=== PATIENT | female | born 1975 | race Caucasian/White ===

== ENCOUNTER 2019-09-20 11:47 | Inpatient (IN) ==
[~2019-09-20 11:47] MED LIST: ceFAZolin SODIUM 1 GM VIAL IV PRN; ceFAZolin SODIUM/DEXTROSE,ISO 2 GM/50 ML BAG IV PRN
[2019-09-20] MEDS ORDERED: GLYCOPYRROLATE 0.2 MG/ML VIAL ONE (12:02)
[2019-09-20] MEDS ORDERED: SUCCINYLCHOLINE IN 0.9%NACL/PF 200 MG/10 ML SYRINGE IV ONE (12:02)
[2019-09-20] MEDS ORDERED: ONDANSETRON HCL/PF 2 MG/ML VIAL ONE ×2 (12:02→12:28)
[2019-09-20] MEDS ORDERED: DEXAMETHASONE SODIUM PHOSPHATE 10 MG/ML VIAL ONE (12:02)
[2019-09-20] MEDS ORDERED: KETOROLAC TROMETHAMINE 30 MG/ML VIAL ONE (12:02)
[2019-09-20] MEDS ORDERED: NEOSTIGMINE METHYLSULFATE 1 MG/ML VIAL ONE (12:02)
[2019-09-20] MEDS ORDERED: SEVOFLURANE 250 ML BTL IH ONE (12:03)
[2019-09-20] MEDS ORDERED: ROCURONIUM BROMIDE 10 MG/ML VIAL ONE ×2 (12:03→15:55)
[2019-09-20] MEDS ORDERED: fentaNYL CITRATE/PF 50 MCG/ML AMPUL ONE ×2 (12:04→14:06)
[2019-09-20] MEDS ORDERED: ceFAZolin SODIUM 1 GM VIAL ONE (12:18)
[2019-09-20] MEDS ORDERED: LIDOCAINE HCL/EPINEPHRINE 30 ML VIAL IJ ONE ×2 (12:18→15:14)
--- NOTE | 2019-09-20 12:24 | ANES ---
Anesthesia Pre Procedure Eval Vitals/Labs: Last Vital Signs Temp 37.8 C 09/20/19 12:08 Pulse 91 09/20/19 12:08 Resp 18 09/20/19 12:08 BP 127/84 09/20/19 12:08 Pulse Ox 98 09/20/19 12:08 HOME MEDICATIONS duloxetine 60 mg capsule,delayed release 60 mg PO DAILY 08/16/19 [Last Taken 09/19/19] norethindrone (contraceptive) 0.35 mg tablet 0.35 mg PO DAILY #28 tab 08/16/19 [Last Taken 09/19/19] meloxicam 15 mg tablet 15 mg PO DAILY #90 tab 08/28/19 [Last Taken 09/19/19] misoprostol 100 mcg tablet 100 mcg PO BID 7 Days #14 tab 09/04/19 [Last Taken 09/19/19] hydrocodone 5 mg-acetaminophen 325 mg tablet 1 tab PO Q6H PRN #14 tab 09/14/19 [Last Taken Unknown] Allergies/Adverse Reactions: Allergies Allergy/AdvReac Type Severity Reaction Status Date / Time No Known Allergies Allergy Verified 09/13/19 12:27 - Planned Procedure Planned Procedure: Diagnostic Hysteroscopy with Novasure Ablation, la Medication List Reviewed:: Yes Allergies Verified: Yes Medical History (Last Reviewed 09/20/19 @ 12:21 by Devante Barnes CRNA) Spinal stenosis of lumbar region with neurogenic claudication (Acute) Onset Date: 04/20/19 Allergic rhinitis due to pollen (Acute) Onset Date: 01/23/19 [facility]. Pain of right heel (Chronic) Onset Date: Unknown Plantar fasciitis (Chronic) Onset Date: Unknown Right. Allergic rhinitis (Chronic) Onset Date: Unknown Vitamin D deficiency (Chronic) Onset Date: 11/24/16 Hypertension Nasal congestion Onset Date: 01/23/19 [facility]. Lichen simplex chronicus Onset Date: 07/25/13 Maxillary sinusitis, chronic Onset Date: 01/23/19 [facility]. Surgical History (Last Reviewed 09/20/19 @ 12:21 by Devante aBrnes CRNA) History of hysteroscopy S/P foot surgery, left Onset Date: Unknown reconstructive breast surgery Onset Date: 2000 Family History (Last Reviewed 09/20/19 @ 12:21 by Devante Barnes CRNA) Grandmother COPD (chronic obstructive pulmonary disease) Cancer Mother No pertinent family history Father No pertinent family history Brother Alive and well - Family Anesthesia History Family History:: no untoward family reactions to anesthesia, no familial bleeding tendencies, no family history of clotting disorders, no family history of premature - Airway/Neck/Teeth Within Normal Limits:: Yes Teeth Condition: intact Denture Type: Full upper Neck Exam: full range of motion Mallampatti Score: 4 Thyromental (T-M) distance: > 6 cm Mandibulo Hyoid distance: > 3 cm - Respiratory Respiratory Physical: lungs clear Smoking Status: Never smoker Sleep Apnea currently treated: No Sleep Apnea by current assessment: Yes - probable by h&p Discussed Risks/Treatment of AMANDA: Yes - Cardiovascular Tolerate Activity: Fair Heart Sounds: S1 & S2, Regular, Murmur - PMI Aortic - Gastrointestinal NPO since: 2400 - Anesthesia Assessment and Plan ASA Class: PS, II Anesthesia Type Plan: General ET Planned difficult intubation/equipment available: Yes
[2019-09-20] MEDS: RINGER'S SOLUTION,LACTATED 1,000 ML IV PRN ×3 (12:25→15:15)
[2019-09-20] MEDS ORDERED: RINGER'S SOLUTION,LACTATED 1,000 ML IV PRN (15:25)
[2019-09-20] MEDS ORDERED: IBUPROFEN 800 MG TABLET PO PRN (15:25)
--- NOTE | 2019-09-20 15:28 | POSTOP NO ---
Date of Surgery: 09/20/19 Anesthesia: General Patient Tolerated the Procedure: Well Post Operative Diagnosis/Procedures: Pre Operative Diagnosis: AUB, leiomyoma Post Operative Diagnosis: same Procedure Performed: TLH, salpingectomies, cystoscopy Estimated Blood Loss: 20 mL Specimens: cervix, uterus, tubes Surgical Complications: none Condition: stable Disposition: to recovery room
[2019-09-20] MEDS ORDERED: MIDAZOLAM HCL/PF 5 MG/ML VIAL ONE (15:55)
[2019-09-20] MEDS ORDERED: HYDROcodone/ACETAMINOPHEN 1 EACH TABLET PO ONE (16:00)
[2019-09-20] MEDS: PROPOFOL 1,000 MG/100 ML PIGGYBACK IV PRN ×3 (16:43→23:16)
[2019-09-20] MEDS: NORMAL SALINE 1,000 ML IV PRN (17:15)
[2019-09-20] MEDS ORDERED: MIDAZOLAM HCL/PF 5 MG/ML VIAL IV ONE (17:28)
[2019-09-20] MEDS ORDERED: PANTOPRAZOLE SODIUM 40 MG in NORMAL SALINE 100 ML IV SCH (17:30)
--- NOTE | 2019-09-20 17:59 | HP ---
Chief Complaint - Chief Complaint Date of Service: 09/20/19 Time of Service: 17:58 Chief Complaint: Hypoxia, difficulty weaning off ventilator post op History of Present Illness: Sandy is a 43 yo female that underwent TLH, salpingectomies, and cystoscopy by Dr. Llanos today. Surgery was uncomplicated. However following surgery during anesthesia weaning patient had difficulty with low tidal volumes, hypoxia, and had emesis with evidence of aspiration. Anesthesia felt uncomfortable extubating the patient and requested that she remain on mechanical ventilation. She was given versed and muscle relaxers for sedation. Medical History (Last Reviewed 09/20/19 @ 19:58 by Lindsey Licea RN) Spinal stenosis of lumbar region with neurogenic claudication (Acute) Onset Date: 04/20/19 Allergic rhinitis due to pollen (Acute) Onset Date: 01/23/19 Dr. Zhen Toussaint, [facility]. Pain of right heel (Chronic) Onset Date: Unknown Plantar fasciitis (Chronic) Onset Date: Unknown Right. Allergic rhinitis (Chronic) Onset Date: Unknown Vitamin D deficiency (Chronic) Onset Date: 11/24/16 Hypertension Nasal congestion Onset Date: 01/23/19 Dr. Zhen Toussaint, [facility]. Lichen simplex chronicus Onset Date: 07/25/13 Maxillary sinusitis, chronic Onset Date: 01/23/19 Dr. Zhen Toussaint, [facility]. Surgical History: Surgical History (Last Reviewed 09/20/19 @ 19:58 by Lindsey Licea RN) History of hysteroscopy S/P foot surgery, left Onset Date: Unknown reconstructive breast surgery Onset Date: 2000 Family History: Family History (Last Reviewed 09/20/19 @ 19:58 by Lindsey Licea RN) Grandmother COPD (chronic obstructive pulmonary disease) Cancer Mother No pertinent family history Father No pertinent family history Brother Alive and well Social History: (Last Reviewed 09/20/19 @ 12:08 by Lindy Rollins RN) Social History: adopted: No foster care: No shelter: No Marital status: lives independently: Yes household members: significant other caregiver/support person: No current occupational status: employed current occupation: Teacher current occupational exposures/hazards: No Highest education level completed: Master's degree Service: No Tobacco: Smoking Status: Never smoker Alcohol: alcohol intake: current alcohol intake frequency: holiday/special occasion Substance Use: substance use type: does not use Dietary Habits: caffeine: Yes Type: carbonated beverages Review Of Systems (GEN) - Review of Systems Additional Comments: Patient is sedated ROS is unobtainable Allergies/Adverse Reactions: Allergies Allergy/AdvReac Type Severity Reaction Status Date / Time No Known Allergies Allergy Verified 09/20/19 19:58 Home Medications: HOME MEDICATIONS duloxetine 60 mg capsule,delayed release 60 mg PO DAILY 08/16/19 [Last Taken 09/19/19] meloxicam 15 mg tablet 15 mg PO DAILY #90 tab 08/28/19 [Last Taken 09/19/19] hydrocodone 5 mg-acetaminophen 325 mg tablet 1 tab PO Q6H PRN #14 tab 09/14/19 [Last Taken Unknown] Exam - Exam Vital Signs: Vital Signs - Last Taken Temp 36.1 C 09/20/19 17:55 Pulse 107 H 09/20/19 17:55 Resp 18 09/20/19 12:08 BP 158/85 H 09/20/19 17:55 Pulse Ox 96 09/20/19 17:55 Constitutional: Present: Other - sedated and intubated Respiratory: Present: lungs clear, other - audible coarseness Cardiovascular/Chest: Present: no murmur, tachycardia Abdomen: Present: Normal bowel sounds, soft, nondistended Extremity: Present: normal inspection Skin Exam: Present: normal color, warm/dry, no cyanosis Appearance: Present: appropriate appearance Diagnostic Studies: Abnormal Lab Results 09/20/19 Range/Units 17:39 pO2 75.7 L (83.0-108.0) mmHg HCO3 19.6 L (21.0-28.0) mmol/L Base Excess -7.3 L (-2.0-3.0) mmol/L ABG pH 7.26 L (7.35-7.45) ABG O2 Sat (Measured) 93.2 L (94.0-98.0) % Laboratory Results pCO2 44.6 mmHg (32.0-45.0) 09/20/19 17:39 pO2 75.7 mmHg (83.0-108.0) L 09/20/19 17:39 HCO3 19.6 mmol/L (21.0-28.0) L 09/20/19 17:39 Total CO2 20.9 mmol/L (19.0-24.0) 09/20/19 17:39 Base Excess -7.3 mmol/L (-2.0-3.0) L 09/20/19 17:39 ABG pH 7.26 (7.35-7.45) L 09/20/19 17:39 ABG O2 Sat (Measured) 93.2 % (94.0-98.0) L 09/20/19 17:39 Urine HCG, Qual Negative (NEGATIVE) 09/20/19 12:09 Pathology Specimen Sent to path 09/20/19 14:41 Assessment/Plan - Narrative Narrative: Sandy is a 43 yo female post op TLH, Salpingectomies, and cystoscopy. She was difficult to extubate and had witnessed aspiration. Will obtain chest xray and arterial blood gasses. She is transitioned to mechanical ventilator with SIMV settings of 510/15/100%/5, will adjust as needed based on ABGs. Will sedate with propofol with versed and morphine for breakthrough. Will keep on ventilator through the night and attempt to wean in the morning. Aspiration does not require antibiotics. Will give IV protonix due mechanical ventilation and increased risk of GI ulcer. Will admit to acute inpatient status due to the need for advanced airway. - Assessment/Plan (1) Aspiration into airway Problem: Acute (2) Difficult extubation Problem: Acute
[2019-09-20] MEDS: CHLORHEXIDINE GLUCONATE 15 ML UDC MM SCH (18:00)
--- NOTE | 2019-09-20 18:04 | ANES ---
Post Anesthesia Discharge - Transfer of Care Transfer of Care handoff given to nurse: Yes - Discharge from PACU Discharge from PACU when meets criteria: Yes - Discharge to ASU Discharge to ASU-no complications/pt stable: No - To SCU intubated
--- NOTE | 2019-09-20 18:07 | ANES ---
Post Anesthesia Assessment - Vital Signs Vitals: Last Vital Signs Temp 36.1 C 09/20/19 17:55 Pulse 107 H 09/20/19 17:55 Resp 18 09/20/19 12:08 BP 158/85 H 09/20/19 17:55 Pulse Ox 96 09/20/19 17:55 Airway Patency: Maintainable - Mental Status Level Of Consciousness: Sedated - Pain Level Pain Score: 0 - N/V Assessment Nausea/Vomiting Presence: None Dehydration:: No - Additional Notes Comments:: To SCU intubated. VSS. On mechanical ventilation.
[2019-09-20] MEDS ORDERED: CHLORHEXIDINE GLUCONATE MOUTHWASH PO PRN (18:45)
[2019-09-20] MEDS: MORPHINE SULFATE 2 MG/ML DISP.SYRIN IV PRN ×2 (19:00→22:08)
[2019-09-20] MEDS: MIDAZOLAM HCL/PF 5 MG/ML VIAL IV PRN ×3 (19:13→22:07)
[2019-09-20 23:44] LABS: Hemoglobin 12.3 gm/dL (12.5-16.0); Mean Cell Volume 91.1 fl (78-100); Mean Corpuscular Hemoglobin 31.1 pg (27-31); Mean Corpuscular Hgb Conc 34.2 g/dl (32-36); Mean Platelet Volume 9.6 fl (8-12.5); Neutrophil # 14.5 K/mm3 (1.3-6.0); Platelet Count 269 K/mm3 (150-450); Red Blood Count 3.95 M/mm3 (4.2-5.4); White Blood Count 15.7 K/mm3 (4.0-10.5)
[2019-09-20 23:57] LABS: Albumin * 3.1 gm/dl (3.4-5.0); BUN/Creatinine Ratio 13.3 (9.0-21.6); Bilirubin, Total 0.4 mg/dL (0.0-1.1); Ca. Corrected For Albumin 8.2 mg/dL (8.4-10.2); Calcium * 7.8 mg/dL (7.9-10.9); Carbon Dioxide 25.9 mmol/L (24-32.6); Potassium 3.9 mmol/L (3.4-4.6); Total Protein 6.3 gm/dL (6.2-8.2)
[2019-09-21] MEDS: MIDAZOLAM HCL/PF 5 MG/ML VIAL IV PRN
[2019-09-21] MEDS: PROPOFOL 1,000 MG/100 ML PIGGYBACK IV PRN ×5 (01:28→07:35)
[2019-09-21] MEDS ORDERED: LORazepam 2 MG/ML DISP.SYRIN IV PRN (02:13)
[2019-09-21] MEDS: NORMAL SALINE 1,000 ML IV PRN (02:48)
[2019-09-21] MEDS: CHLORHEXIDINE GLUCONATE 15 ML UDC MM SCH ×2 (04:12→09:56)
[2019-09-21 08:23] LABS: Hematocrit 34.5 % (37.0-47.0); Hemoglobin 11.4 gm/dL (12.5-16.0); Mean Cell Volume 92.5 fl (78-100); Mean Corpuscular Hemoglobin 30.6 pg (27-31); Mean Platelet Volume 9.6 fl (8-12.5); Neutrophil # 13.1 K/mm3 (1.3-6.0); Neutrophil % 83.7 % (42-75.0); Platelet Count 248 K/mm3 (150-450); Red Blood Count 3.73 M/mm3 (4.2-5.4); Red Cell Distribution Width 12.2 % (11.5-14.0); White Blood Count 15.6 K/mm3 (4.0-10.5)
[2019-09-21 08:39] LABS: Albumin * 2.8 gm/dl (3.4-5.0); Anion Gap 13.4 mmol/L (6.8-13.8); BUN/Creatinine Ratio 13.8 (9.0-21.6); Bilirubin, Total 0.2 mg/dL (0.0-1.1); Ca. Corrected For Albumin 8.2 mg/dL (8.4-10.2); Calcium * 7.6 mg/dL (7.9-10.9); Carbon Dioxide 25.3 mmol/L (24-32.6); Potassium 3.7 mmol/L (3.4-4.6); Total Protein 5.8 gm/dL (6.2-8.2)
[2019-09-21] MEDS ORDERED: ALBUTEROL SULFATE 2.5 MG/0.5 ML VIAL.NEB IH ONE (08:46)
[2019-09-21] MEDS ORDERED: ALBUTEROL SULFATE/IPRATROPIUM 3 ML NEBU IH ONE ×2 (08:48→09:40)
--- NOTE | 2019-09-21 11:01 | OR ---
Operative Report - Dictated Report Narrative: Preoperative diagnosis: AUB, adenomyosis, leiomyomas Postoperative diagnosis: same Procedure: Total laparoscopic hysterectomy, bilateral salpingectomies, cystoscopy Surgeon: Dr. Llanos Anesthesia: JESÚS Anesthesiologist: Devante Barnes CRNA Description of the procedure: The patient was taken to the operating room where general anesthesia was induced. She was then prepped and draped in the lithotomy position in the standard surgical fashion. Attention was then turned to the vagina. A sterile speculum was placed in the patient's vagina. The anterior lip of the cervix was grasped with a single toothed tenaculum. The cervical os was dilated to accommodate the uterine manipulator. A large blue cup was used as well as a blue tip on the FRAN manipulator. Attention was then turned to the abdomen. A 5 mm skin incision was made infraumbilically. The abdomen was entered directly with a 5mm trocar and then it was insufflated with CO2 gas. Two additional 5 mm ports were placed in the RLQ and LLQ respectively. The liver edge was examined and appeared normal. The fallopian tubes and ovaries appeared normal. The appendix appeared normal. The left round ligament was identified and transected with the Harmonic scalpel. The left fallopian tube was cut along the mesosalpinx. The left utero-ovarian ligament was transected. The incision was carried through the anterior and posterior leaves of the broad ligament. A bladder flap was created anteriorly and the posterior peritoneum was dissected as well. The left uterine arteries were transected and brisk bleeding ensued and it was controlled by identifying both sides of the bleeding vessel. The same procedure was repeated on the left. A colpotomy was begun anteriorly and carried circumferentially. The uterus was removed vaginally. Attention was then turned to the abdomen. The vaginal cuff was closed using 4 interrupted sutures of 0-PDS. Hemostasis was adequate. All instruments were removed from the patient's abdomen. The skin incisions were closed with 4-0 vicryl. A cystoscopy was performed which revealed an intact bladder wall as well as strong, bilateral ureteral jets. All sponge, lap, and needle counts were correct. The patient tolerated the procedure well. She was transferred to the recovery room in stable condition. EBL: 20 mL Complications: none Specimens: cervix, uterus, tubes
[2019-09-21] MEDS ORDERED: HYDROcodone/ACETAMINOPHEN 1 EACH TABLET PO PRN (11:27)
[2019-09-21] MEDS ORDERED: ONDANSETRON 4 MG TAB.RAPDIS PO PRN (11:27)
--- NOTE | 2019-09-21 12:10 | PN ---
Subjective - Date and Time Seen Date: 09/21/19 Time: 10:40 Subjective Narrative: Patient without complaints. Reports throat discomfort but no abdominal pain. Objective - Review of Systems Generalized/Overall Review: Reports: No Symptoms Reported Misc: All systems neg except as marked - Vitals Vitals: Last Vital Signs Temp 37.2 C 09/21/19 09:15 Pulse 115 H 09/21/19 11:00 Resp 18 09/21/19 11:00 BP 131/67 09/21/19 11:00 Pulse Ox 96 09/21/19 11:11 - Abnormal Lab Findings Abnormal Lab Findings: Abnormal Lab Results 09/20/19 09/20/19 09/20/19 Range/Units 17:39 19:45 23:40 WBC 15.7 H (4.0-10.5) K/mm3 RBC 3.95 L (4.2-5.4) M/mm3 Hgb 12.3 L (12.5-16.0) gm/dL Hct 36.0 L (37.0-47.0) % MCH 31.1 H (27-31) pg Immature Gran % (Auto) 0.80 H (0.001-0.429) % Immature Gran # (Auto) 0.13 H (0.000-0.0310) K/mm3 Neutrophils % 92.0 H (42-75.0) % Lymphocytes % 4.6 L (20-51) % Neutrophils # 14.5 H (1.3-6.0) K/mm3 Lymphocytes # 0.73 L (1.5-3.5) k/mm3 pO2 75.7 L (83.0-108.0) mmHg HCO3 19.6 L 20.7 L (21.0-28.0) mmol/L Base Excess -7.3 L -4.1 L (-2.0-3.0) mmol/L ABG pH 7.26 L (7.35-7.45) ABG O2 Sat (Measured) 93.2 L (94.0-98.0) % Random Glucose (70-110) mg/dL Calcium (7.9-10.9) mg/dL Calcium Adj for Albumin (8.4-10.2) mg/dL Total Protein (6.2-8.2) gm/dL Albumin (3.4-5.0) gm/dl 11/27/19 11/28/19 11/28/19 Range/Units 23:40 06:15 08:15 WBC 15.6 H (4.0-10.5) K/mm3 RBC 3.73 L (4.2-5.4) M/mm3 Hgb 11.4 L (12.5-16.0) gm/dL Hct 34.5 L (37.0-47.0) % MCH (27-31) pg Immature Gran % (Auto) 0.80 H (0.001-0.429) % Immature Gran # (Auto) 0.13 H (0.000-0.0310) K/mm3 Neutrophils % 83.7 H (42-75.0) % Lymphocytes % 9.0 L (20-51) % Neutrophils # 13.1 H (1.3-6.0) K/mm3 Lymphocytes # 1.40 L (1.5-3.5) k/mm3 pO2 111.4 H (83.0-108.0) mmHg HCO3 (21.0-28.0) mmol/L Base Excess -2.6 L (-2.0-3.0) mmol/L ABG pH (7.35-7.45) ABG O2 Sat (Measured) 98.1 H (94.0-98.0) % Random Glucose 145 H (70-110) mg/dL Calcium 7.8 L (7.9-10.9) mg/dL Calcium Adj for Albumin 8.2 L (8.4-10.2) mg/dL Total Protein (6.2-8.2) gm/dL Albumin 3.1 L (3.4-5.0) gm/dl 09/21/19 Range/Units 08:15 WBC (4.0-10.5) K/mm3 RBC (4.2-5.4) M/mm3 Hgb (12.5-16.0) gm/dL Hct (37.0-47.0) % MCH (27-31) pg Immature Gran % (Auto) (0.001-0.429) % Immature Gran # (Auto) (0.000-0.0310) K/mm3 Neutrophils % (42-75.0) % Lymphocytes % (20-51) % Neutrophils # (1.3-6.0) K/mm3 Lymphocytes # (1.5-3.5) k/mm3 pO2 (83.0-108.0) mmHg HCO3 (21.0-28.0) mmol/L Base Excess (-2.0-3.0) mmol/L ABG pH (7.35-7.45) ABG O2 Sat (Measured) (94.0-98.0) % Random Glucose 127 H (70-110) mg/dL Calcium 7.6 L (7.9-10.9) mg/dL Calcium Adj for Albumin 8.2 L (8.4-10.2) mg/dL Total Protein 5.8 L (6.2-8.2) gm/dL Albumin 2.8 L (3.4-5.0) gm/dl - Exam Constitutional: Present: Alert, Oriented x3, Cooperative Abdomen: Present: soft, nontender, nondistended - Incision dressings c/d/i Extremity: Present: non-tender, no pedal edema Skin Exam: Present: normal color, warm/dry, no cyanosis Appearance: Present: appropriate appearance Eye contact: Present: cooperative Thoughts: Present: normal thought pattern Cauti Physician Documentation - Urinary Catheter Management Urethral (Lopez) Urethral Indwelling: Yes Date of Insertion: 09/20/19 Time of Insertion: 17:15 Date of Removal: 09/21/19 Time of Removal: 10:30 Assessment/Plan Plan Narrative: POD 1 s/p TLH, salpingectomies, cystoscopy Doing well s/p extubation Appreciate medical management Will likely be discharged later today Vicodin Rx for pain control previously sent Follow-up in 4 weeks or sooner for any other concerns
[2019-09-21] MEDS ORDERED: IBUPROFEN 800 MG TABLET PO PRN (13:52)
--- NOTE | 2019-09-21 16:40 | DS ---
(1) Aspiration into airway Problem: Acute (2) Difficult extubation Problem: Resolved Date of Discharge:: 09/21/19 Description of Stay: Sandy is a 43 yo female admitted due to difficulty to extubate following gynecological surgery. She was maintained on mechanical ventilation over night and sedated with propofol, ativan, and morphine prn. Respiratory status was monitored with ABGs and chest xrays that were done serially. They showed evidence of atelectasis. This mroning she went through vent weaning protocol and was successfully weaned off the ventilatory. She was given cornet and incentive spirometer to help with atelectasis. She was monitored for several hours and did well. She ambulated without difficulty and feels ready for home discharge. She will follow up in clinic in 1 week and will call the clinic tomorrow to give an update on how she is feeling. Procedures Performed: see notes below List Procedures: 09/20/19: Intubation, Total laparoscopic hysterectomy, bilateral salpingectomies, cystoscopy 09/21/19: Extubation Results and Findings: Lab Pending Results 09/20/19 12:09: Urine HCG, Qual Negative 09/20/19 14:41: Pathology Specimen Sent to path 09/20/19 17:39: pCO2 44.6, pO2 75.7 L, HCO3 19.6 L, Total CO2 20.9, Base Excess -7.3 L, ABG pH 7.26 L, ABG O2 Sat (Measured) 93.2 L 09/20/19 19:45: pCO2 36.9, pO2 88.1, HCO3 20.7 L, Total CO2 21.8, Base Excess - 4.1 L, ABG pH 7.37, ABG O2 Sat (Measured) 96.5 09/20/19 23:40: WBC 15.7 H, RBC 3.95 L, Hgb 12.3 L, Hct 36.0 L, MCV 91.1, MCH 31.1 H, MCHC 34.2, RDW 12.0, Plt Count 269, MPV 9.6, Immature Gran % (Auto) 0.80 H, Immature Gran # (Auto) 0.13 H, Neutrophils % 92.0 H, Lymphocytes % 4.6 L, Monocytes % 2.5, Eosinophils % 0.0, Basophils % 0.1, Nucleated RBC % 0.0, Neutrophils # 14.5 H, Lymphocytes # 0.73 L, Monocytes # 0.4, Eosinophils # 0.0, Absolute Basophils 0.0 09/20/19 23:40: Sodium 133, Plasma Sodium 134, Potassium 3.9, Chloride 102, Carbon Dioxide 25.9, Anion Gap 9.0, BUN 10, Creatinine 0.75, Est GFR (Non-Af Amer) 89, BUN/Creatinine Ratio 13.3, Random Glucose 145 H, Calcium 7.8 L, Calcium Adj for Albumin 8.2 L, Total Bilirubin 0.4, AST 17, ALT 31, Alkaline Phosphatase 53, Total Protein 6.3, Albumin 3.1 L 09/21/19 06:15: pCO2 34.7, pO2 111.4 H, HCO3 21.5, Total CO2 22.5, Base Excess - 2.6 L, ABG pH 7.41, ABG O2 Sat (Measured) 98.1 H 09/21/19 08:15: WBC 15.6 H, RBC 3.73 L, Hgb 11.4 L, Hct 34.5 L, MCV 92.5, MCH 30.6, MCHC 33.0, RDW 12.2, Plt Count 248, MPV 9.6, Immature Gran % (Auto) 0.80 H, Immature Gran # (Auto) 0.13 H, Neutrophils % 83.7 H, Lymphocytes % 9.0 L, Monocytes % 6.3, Eosinophils % 0.1, Basophils % 0.1, Nucleated RBC % 0.0, Neutrophils # 13.1 H, Lymphocytes # 1.40 L, Monocytes # 1.0, Eosinophils # 0.0, Absolute Basophils 0.0 09/21/19 08:15: Sodium 139, Plasma Sodium 139, Potassium 3.7, Chloride 104, Carbon Dioxide 25.3, Anion Gap 13.4, BUN 11, Creatinine 0.80, Est GFR (Non-Af Amer) 83, BUN/Creatinine Ratio 13.8, Random Glucose 127 H, Calcium 7.6 L, Calcium Adj for Albumin 8.2 L, Total Bilirubin 0.2, AST 15, ALT 26, Alkaline Phosphatase 50, Total Protein 5.8 L, Albumin 2.8 L Discharge Location: Home Disposition: Home self-care Condition: Good Discharge Activity: Activity as tolerated, Other - post op recommendations per gynecology Discharge Diet: General/regular food Referrals: Saran Monge DO [Primary Care Provider] - One Week Problem Oriented Discharge Instructions to Patient/Family: Cystoscopy, Care After, Total Laparoscopic Hysterectomy, Care After, Salpingectomy, Care After Additional Patient Instructions (free text): Please review your discharge instructions. Please call Dr. Llanos's office with any questions or concerns. [phone] If you have any questions or concerns after office hours (Wed-Wed 8a-5p) you may still call this number and your call will be forwarded to the on-call physician for the [facility]. If you have a problem getting ahold of the on-call physician you may call [facility] directly at [phone] for assistance. If you are prescribed an as needed pain medication it will be waiting for you at your pharmacy after your procedure When taking a narcotic pain medication... -no drinking alcohol, driving, operating machinery, signing legal documents due to drowsiness being a medication side effect -do NOT take Tylenol with these medications due to Tylenol already being in most of them -take with food to prevent nausea -if you experience constipation increase fiber in your diet or take an OTC stool softener -you may use Ibuprofen per label instructions as needed for discomfort as well By rule of thumb, if you are saturating 2 or more vaginal pads within a 1 hour period of 2 consecutive hours or more please return to the hospital [facility]. Please continue to monitor your urine output and make sure you are having adequates amount of output for how much fluids you are taking in. Please refrain from showering for a full 24 hours, after this time you may show er as normal but do NOT scrub your incision site areas (PAT clean and PAT dry), also refrain from using scented soaps or soaps with beading in them as these can increase your risk of infection. Make sure your dermabond (glue) on your incision sites stays intact. You have a follow-up appointment with Dr. Llanos at [facility] on Wednesday, October 23, 2019 at 9:30 a.m. Follow up with Dr. Monge in [address] Monge's office on Wednesday with an update Prescriptions (Any new or edited meds): Ondansetron [Zofran Odt] 4 mg PO Q6H PRN #20 tab.rapdis PRN Reason: Nausea And Vomiting Transmission Status: Pending to [id number] Complete Home Medications List: Complete Home Medication List: duloxetine 60 mg capsule,delayed release 60 mg PO DAILY 08/16/19 meloxicam 15 mg tablet 15 mg PO DAILY #90 tab 08/28/19 hydrocodone 5 mg-acetaminophen 325 mg tablet 1 tab PO Q6H PRN #14 tab 09/14/19 Ondansetron [Zofran Odt] 4 mg PO Q6H PRN #20 tab.rapdis 09/21/19
[2019-09-21] MEDS ORDERED: ONDANSETRON 8 MG TAB.RAPDIS PO ONE (16:43)
[2019-09-21 17:03] VITALS: BP 112/62
== END 2019-09-21 16:50 | disposition home or self-care (01) | DRG 982 ==
LOC: SUR 11:47 → SCU 16:11
PROVIDERS: ADMIT Family Medicine; ATTEND Family Medicine
CPT/HCPCS: 36415; 36600; 71010; 71045; 80053; 82803; 84703; 85025; 88307; 94002; 94003; 94640; 94664; J0330; J2405